=== PATIENT | male | born 1990 | race Caucasian/White ===

== ENCOUNTER 2020-07-06 11:44 | Emergency (ER) | payer MEDICAID ==
[~2020-07-06] VITALS: Ht 170.2 cm; Wt 68.0 kg
[2020-07-06 11:49] VITALS: BP 132/81
[2020-07-06] MEDS ORDERED: PRED50TA PO (11:56)
--- NOTE | 2020-07-06 12:01 | NUR ---
Patient discharged to home in stable condition. Written and verbal after care instructions given. Patient verbalizes understanding of instruction. Pt ambulatory with a steady gait
== END 2020-07-06 12:03 | disposition home or self-care (01) ==
LOC: ER 11:44
DX: L25.9 Unspecified contact dermatitis, unspecified cause (principal); Z79.899 Other long term (current) drug therapy